=== PATIENT | female | born 1955 | race Two or more races ===

== ENCOUNTER 2016-09-06 12:10 | Emergency (ER) | payer MEDICAID ==
[2016-09-06 13:19] LABS: BASOPHIL % 0.1 % (0-2); PLATELET COUNT 342 x10^3mcL (130-400)
[2016-09-06 13:20] LABS: RED CELL DISTRIBUTION WIDTH 14.6 % (11.5-14.5)
[2016-09-06 13:35] LABS: CALCIUM 8.7 mg/dL (8.5-10.1); CARBON DIOXIDE 26.2 mmol/L (21-32); CHLORIDE SERUM 105 mmol/L (98-107); CREATININE SERUM 0.8 mg/dL (0.6-1.0); GFR1 > 60 mL/min; GLUCOSE SERUM 109 mg/dL (74-106); POTASSIUM SERUM 3.4 mmol/L (3.5-5.1); SODIUM SERUM 143 mmol/L (136-145)
[2016-09-06 13:39] LABS: ALBUMIN 3.6 g/dL (3.4-5.0); ALKALINE PHOSPHATASE 102 U/L (46-116); ALT/SGPT 21 U/L (14-59); AMYLASE 52 U/L (25-115); AST/SGOT 17 U/L (15-37); BILIRUBIN TOTAL 1.37 mg/dL (0.20-1.00); LIPASE 86 IU/L (73-393); TOTAL PROTEIN, SERUM 7.3 g/dL (6.4-8.2)
[2016-09-06 15:54] VITALS: BP 124/74
== END 2016-09-06 15:54 | disposition home or self-care (01) ==
LOC: ED 12:10
PROVIDERS: Emergency Medicine
DX: R10.9 Unspecified abdominal pain (principal); R11.10 Vomiting, unspecified; R19.7 Diarrhea, unspecified; E87.6 Hypokalemia; E78.00 Pure hypercholesterolemia, unspecified
CPT/HCPCS: 83880; 87046; 87046-59; J2405; J3010; J7030